=== PATIENT | male | born 1985 | race Caucasian/White ===

== ENCOUNTER 2024-12-07 13:26 | Inpatient (IN) | payer OTHER, SELFPAY ==
[2024-12-07] VITALS (42 sets, daily range): BP systolic 102–147; BP diastolic 65–113
[2024-12-07 12:01] LABS: Glucose - Point of Care 93 mg/dl (70-99)
--- NOTE | 2024-12-07 12:10 | CON.NEURO ---
Neuro Assessment/Plan
Assessment
Head CT imgs rev'd normal
CTA head/neck imgs rev'd no LVO
CTP core 0, penumbra 0
39 year old man initial presentation of L hemispheric TIA fully resolved, then developed left facial symptoms. stroke in the young.
TNK 12:37
multiple territories, suspect embolic etiology unknown source (ESUS)
Admit to MICU for 24 hours of frequent neurochecks.�
neurochecks q1, Frequent vital signs Q15min x 2hrs, then Q30min x 6hrs, then Q1H x 16hrs until stable from the start of TNK.�
�tele, accuchecks/ISS. Repeat Head CT in 24 hours
Blood pressure goals: <180/105 and MAP 80-100� in the acute period.� If BP elevated for 2 readings, preferred agents include IV labetalol or nicardipine.� Vasopressors as necessary to maintain MAP and CPP.�
Glucose goals: Maintain euglycemia using sliding scale insulin. If glucose >180 for two consecutive readings, please use MICU insulin protocol.�
Temperature goals: maintain normothermia�
Diagnostic tests: MRI brain without contrast, ECHO
stroke in the young additional workup check TSH, ESR, CRP, folate, B12, homocysteine,
ANNA, and if neg CTA torso eval for systemic emboli
35' crit discussing history, examining patient multiple times, independent review of imaging, decision making, consenting patient/ re: TNK
Consultation
Order
Date of Consultation: 12/07/24
Requesting Provider: marine
Reason for Consult: stroke alert
Subjective/Objective
Subjective Data
Date of Service: December 07, 2024
from ED notes:
The patient is a 39-year-old male who took [id number]-svyyjen medication, Tylenol PM, last night for muscle soreness from working out. He woke up this morning feeling groggy, which he attributed to Tylenol PM but was otherwise alert and oriented. At
approximately 9:00 AM, he was reportedly fine and conversing normally. Around 10:30 to 11:00 AM, he called from the basement asking for water and reported feeling nauseous. He vomited once and felt slightly better afterward but continued to describe
an unusual sensation, feeling 'out of the body.' He has no prior significant medical conditions but takes Wellbutrin for anxiety.. He denies any headache currently but did have headache earlier or other symptoms currently.
based on findings from Dr Jara and me finding a right facial droop, NIHSS 5 (LOC, month, aphasia, ataxia, facial droop), I decided to treat with TNK in the CT scan. By the time we got back to the room, TNK had arrived, and all deficits had
resolved, however within 2 minutes he developed a LEFT facial droop and left facial numbness (NIHSS 2) so we gave TNK at 12:37
Objective Data
Vital Signs
Pulse Resp BP Pulse Ox
65 18 137/89 100
12/07/24 11:58 12/07/24 11:58 12/07/24 11:58 12/07/24 11:58
Patient Allergies
No Known Allergies Allergy (Unverified 01/08/22 08:37)
CVA Assessment
Onset of Stroke Symptoms
Date of onset of symptoms: 12/07/24
Time of onset of symptoms: 10:30
NIH Stroke Score
Level of Consciousness: 1 - Arousable
LOC Questions: 1-Answers one correctly
LOC Commands: 0-Performs both correctly
Best Horizontal Gaze: 0-Normal
Visual [place]: 0=Normal, no visual loss
Facial Palsy: 1=Minor paralysis
Motor - Right Arm: 0=No drift 10 seconds
Motor - Left Arm: 0=No drift 10 seconds
Motor - Right Le-No drift 5 seconds
Motor - Left Le-No drift 5 seconds
Limb Ataxia: 1-Present in one limb
Sensation: 0-Normal
Best Language: 1-Mild aphasia
Dysarthria: 0-Normal
Extinction and Inattention: 0-No abnormality
NIH Total Score:: 5
Medications
-
Home Medications
�Medication �Instructions �Recorded
cyclobenzaprine 10 mg tablet 10 mg PO TID PRN muscle spasm #10 01/08/22
tabs
hydrocodone 5 mg-acetaminophen 325 1 tab PO Q8H PRN pain #10 tabs 01/08/22
mg tablet
--- NOTE | 2024-12-07 12:28 | ED.CVA ---
History of Present Illness
General
Chief Complaint: CVA/TIA Symptoms
Time Seen by Provider: 12/07/24 11:55
Onset of Stroke Symptoms
Onset of symptoms known: Yes
Date of onset of symptoms: 12/07/24
Time of onset of symptoms: 10:30
History of Present Illness
History of Present Illness:
Note:
CHIEF COMPLAINT(S)
Altered mental status and vomiting.
HISTORY OF PRESENT ILLNESS
The patient is a 39-year-old male who took [id number] medication, Tylenol PM, last night for muscle soreness from working out. He woke up this morning feeling groggy, which he attributed to Tylenol PM but was otherwise alert and oriented. At
approximately 9:00 AM, he was reportedly fine and conversing normally. Around 10:30 to 11:00 AM, he called from the basement asking for water and reported feeling nauseous. He vomited once and felt slightly better afterward but continued to describe
an unusual sensation, feeling 'out of the body.' He has no prior significant medical conditions but takes Wellbutrin for anxiety.. He denies any headache currently but did have headache earlier or other symptoms currently.
PHYSICAL EXAM
General: The patient is generally alert but at times has waxing and waning level of consciousness
Skin: Warm, dry.
Head: Normocephalic, atraumatic.
Neck: Supple, trachea midline.
Eyes, Ears, Nose, Mouth, and Throat: Oral mucosa moist.
Cardiovascular: Normal peripheral perfusion, no edema.
Respiratory: Respirations are non-labored.
Gastrointestinal: Abdomen nondistended.
Back: Normal range of motion, normal alignment.
Musculoskeletal: Normal range of motion, normal strength.
Neurological: Question subtle facial asymmetry, there seem to be some ataxia with finger-nose testing, the patient has waxing and waning level of consciousness, he took nearly 30 seconds to the month accurately, he appears somewhat confused, 5 out
of 5 strength in all extremities
Psychiatric: Cooperative, appropriate mood and affect.
PROBLEM LIST
Acute:
- Altered mental status
- Vomiting
Chronic:
- Anxiety
PLAN
Evaluation to include a computed tomography (CT) scan of the head. Consider possibility of dehydration due to vomiting.
DIFFERENTIAL DIAGNOSIS
The Differential Diagnosis includes, in no particular order and is not limited to:
- Medication side effect
- Anxiety reaction
- Dehydration
- Stroke
- Electrolyte imbalance
- Vestibular disorder
- Migraine
- Acute confusional state
- Substance use or withdrawal
- Neurological event (e.g., transient ischemic attack)
CT head shows no acute abnormality
SUMMARY OF ENCOUNTER
The patient was seen in the emergency department as a stroke alert due to altered mental status and vomiting. The patient initially exhibited waxing and waning symptoms, with a sudden worsening while in the emergency department. Neurology was
consulted, and it was recommended to administer tenecteplase (TNK), which was ordered by Dr. Cooper. Basic blood work was performed and was relatively unremarkable. Urine drug screen was positive for marijuana with no alcohol detected. A computed
tomography angiography (CTA) showed no large vessel occlusion, and a non-contrast CT scan of the head was negative.
ASSESSMENT
The patient presented with altered mental status and vomiting, potential causes include medication side effects, dehydration, electrolyte imbalance, or acute neurological event. The positive marijuana screen and negative imaging for large vessel
occlusion or other acute intracranial findings guide the differential diagnosis away from an acute ischemic stroke.
PLAN
Monitor patients neurological status. Continue to assess for potential side effects of medications. Address hydration and electrolyte balance as needed. Follow protocols for patients with positive drug screens, ensuring patient support and
counseling about substance use.
INDEPENDENT REVIEW OF LABS AND INTERPRETATION OF TESTS
My independent review of the urine drug screen indicates a positive result for marijuana, with no alcohol detected. My independent interpretation of the computed tomography angiography (CTA) is that there is no large vessel occlusion. The
non-contrast CT scan of the head is negative for acute findings.
PATIENT EDUCATION AND COUNSELING
The patient was educated on the implications of a positive drug screen for marijuana, and the importance of monitoring and possibly modifying any medication that might contribute to altered mental status. Counseling regarding substance use and its
potential effects on health was also provided.
MEDICATION RECONCILIATION
Tenecteplase (TNK) was administered as per neurology recommendations for the acute management of symptoms concerning for stroke.
MEDICAL DECISION MAKING
-Complexity of Data Reviewed: Chronic conditions affecting care include anxiety. Differential diagnosis includes potential medication side effects, anxiety reactions, dehydration, stroke, electrolyte imbalance, vestibular disorder, migraine, acute
confusional state, substance use or withdrawal, and transient ischemic attack.
-Data:
Category 1
My independent interpretation of the CTA reveals no large vessel occlusion. The non-contrast CT scan of the head was interpreted as negative for acute intracranial findings. Urine drug screen was positive for marijuana.
Category 3
Neurology was consulted for management recommendations. Tenecteplase was recommended by neurology and administered under Dr. Fontanez orders.
-Risk:
Consideration of Admission/Observation: Escalation of care including admission/observation was considered given the complexity and risk of the patients presenting complaint and exam findings. However, ultimately I feel the patient is safe for
outpatient management with close follow-up. Reasoning: Work-up reassuring, does not reveal any acute life/organ threatening processes, patients symptoms well controlled upon reevaluation, reexamination is reassuring, vitals are stable, patient
agreeable with discharge, reliable for follow-up.
DIAGNOSIS
- Altered mental status, unspecified (R41.82)
- Vomiting, unspecified (R11.10)
- Positive urine drug screen for cannabinoids (R78.6)
Phy Exam
Physical Exam
Physical Exam:
See HPI
Course
Orders/Labs/Results
Orders:
Orders
12/07/24 12:01
CT BRAIN PERF STROKE ALERT Urgent
Comment:
Reason For Exam: alt ms
CT HEAD STROKE ALERT W/o Cont Urgent
Comment:
Reason For Exam: alt ms ataxia acute confusion
CT HEAD/NECK ANG STROKE ALERT Urgent
Comment:
Reason For Exam: alt ms ataxia
12/07/24 12:23
Tenecteplase [Tnkase] 21 mg Syringe [Syringe Non-Pump] 0 ml IV NOW
Provider explained risk/benefits to patient &/or caregiver?: Yes
Blood pressure: 137/89
12/07/24 12:29
Alcohol Urgent
Complete Blood Count/With Diff Urgent
Comprehensive Metabolic Panel Urgent
Glycohemoglobin (HgbA1c) Urgent
12/07/24 12:31
PTT Urgent
Prothrombin Time Urgent
Troponin I Urgent
12/07/24 12:58
Admit/Transfer Patient As Directed
Co-Sign Provider:
Level of Care: Inpatient admission
Assign to:: ICU
Physician / Group: phoebe
Diagnosis: cva
Reason for Hospitalization: cva
Expected length of stay greater than two midnights?: Yes
ELOS- Estimated Length of Stay in days: 2
I certify the patient meets the requirements for IP care: Yes
Code Status As Directed
Resuscitation Status: Full Code
PRN Pain Medication Management As Directed
May give lesser potent ordered pain med per pt: Yes
preference::
Protocol:: Medication orders for pain may be administered in a
manner that supports deferring to patient preference
when the pt is:
- Requesting an ordered lesser potent pain medication.
Least to most potent pain medications are defined
as: acetaminophen < NSAID < tramadol < opioids
(morphine, oxycodone, hydromorphone).
- Requesting a lesser dose of the same medication IF
ORDERED.
- Requesting a less intrusive route of administration
if both routes are prescribed by the provider (PO <
IV).
12/07/24 13:05
Urine Drug Abuse Screen Urgent
Date Specimen was Collected: 12/07/24
Time Specimen was Collected: 12:39
12/07/24 13:12
Add On- LAB Routine
Comments:: Please add to today's labs or draw as routine
Tests Added?: TSH reflex, Ferritin, Folate, Vit. B12, homocysteine, ESR, CRP,
12/07/24 13:29
Acetaminophen [Tylenol] 650 mg PO Q4HPRN PRN
12/07/24 13:29
Echo W Saline (bubble) Routine
Reason for Study: cva
Case Management Consult Once
Case Management Consult: Discharge Planning
DIETARY IP CONSULT Routine
Reason for Consult: stroke/TIA
NEUROLOGY CONSULT Routine
Consulting Provider: Oz Foreman
Was physician already notified: Yes
[employer] Urgent
MR Brain Without Contrast Routine
Comment: complete 24 hrs post tenecteplase administration
Reason For Exam: possible stroke, status post tenecteplase
Recent pill cam endoscopy?: No
Hemetest Stools As Directed
Comment: hemoccult all stools if patient received tenecteplase
NIH Stroke Scale As Directed
Directions: Other
Comment: NIH stroke Scale to be completed prior to thrombolytic administration, then every 1 hour for 2
hours, then every shift and with change in condition and/or mental status.
Neurological Checks As Directed
Frequency: Per unit guidelines
Additional Instructions:: after start of thrombolytic therapy:
q15min x 2 hrs, q30min x 6 hrs, q1h x 16 hrs, q4h x 24 hrs, then every shift and
with any changes.
Notify MD As Directed
Notify physician if: - Any deterioration, change in neurological status, development of severe headache,
nausea and vomiting, or with any signs of bleeding. (see guidelines for suspected
intracerebral hemorrhage).
- If intracranial hemorrhage is suspected or confirmed by imaging, anticipate need for
osmotic diuretic to maintain euvolemia.
Notify MD As Directed
Notify physician if: Glucose less than 70 or greater than 180.
Anticipate corrective insulin orders.
Notify MD As Directed
Notify physician if: unable to obtain MRI of head within 22-32 hours of tenecteplase administration
- contact Neurology for order for CT of head without contrast
Patient Education As Directed
Type: Stroke education packet
Comment: provide to patient and family
Pneumatic Compression Sleeves As Directed
Type: Knee high
Precautions As Directed
Type of Precautions: Bleeding
Comment: post Bleeding Precaution sign at bedside (if patient received tenecteplase)
Swallow Screening CVA/TIA ONLY As Directed
Comment: NPO until swallow screening completed
If patient FAILS swallow screening:: NPO and Speech consult and aspiration precautions
If patient PASSES swallow screening, diet:: 1999/ 17 CHO Diabetic
Thrombolytic Precautions As Directed
Thrombolytic Precautions:: [place] bleeding precautions. Minimize invasive procedures and venipunctures,
avoid IM injections and over-handling patient, and check all puncture sites for
bleeding. Assess the patient and notify provider for signs and symptoms of
internal or serious bleeding, such as changes in vital signs or evidence of blood
in the urine or stool.
Additional instructions: Hemocult all stools.
Apply direct pressure or pressure dressing to any compressible puncture sites.
No ABG sampling or Brand insertion after Tenecteplase administration for 24 hours,
unless directed by the Neurologist/Attending.
Vital Signs As Directed
Frequency: q15m
Call for:: BP greater than 180/105 mmHg or less than 100/60 mmHg
Additional Instructions:: after start of thrombolytic therapy:
q15min x 2 hrs, q30min x 6 hrs, q1h x 16 hrs, q4h x 24 hrs, then every shift and
with any changes.
Ot Eval And Treat Routine
Physiatry Consult Routine
Consulting Provider: Oren Amador
Was physician already notified: Yes
Reason for consult: stroke/TIA
Pt Eval And Treat Routine
Activity Level: As Tolerated
Speech Therapy Eval & Treat Routine
DX Deep Vein Thrombosis Video Routine
12/08/24 06:00
Basic Metabolic Panel IN AM
Cardiovascular Evaluation IN AM
Complete Blood Count/No Diff IN AM
PTT IN AM
Prothrombin Time IN AM
Abnormal Lab Results
12/07/24 12/07/24
12:29 13:05
WBC 17.1 H 10^3/uL
(4.8-10.8)
RDW 11.4 L %
(11.5-14.5)
MPV 10.5 H fL
(7.4-10.4)
Abs Immat Gran (auto) 0.1 H 10^3/uL
(0-0.05)
Absolute Neuts (auto) 13.7 H 10^3/uL
(1.4-6.5)
Absolute Monos (auto) 1.0 H 10^3/uL
(0.1-0.6)
Neutrophils % 79.8 H %
(42.2-75.2)
Lymphocytes % 13.4 L %
(20.5-51.1)
BUN 22 H mg/dl
(9-20)
Albumin 5.1 H g/dl
(3.5-5.0)
U Marijuana (THC) Screen Positive H
(Negative)
12/07/24 12:29
12/07/24 12:29
Vital Signs
Initial and Last Documented VS:
Initial Vital Signs
Pulse Resp BP Pulse Ox
65 18 137/89 100
12/07/24 11:58 12/07/24 11:58 12/07/24 11:58 12/07/24 11:58
Last Documented Vital Signs
Temp Pulse Resp BP Pulse Ox
36.6 C 67 21 117/71 98
12/07/24 13:56 12/07/24 14:15 12/07/24 14:15 12/07/24 14:15 12/07/24 14:07
*Pulse Oximetry
SaO2: 100
Oxygen Mode of Delivery: Room air
Patient hypoxic: no
*Critical Care Note
Total Time (30-74mins, 75-104mins- exclusive of procedures): 40min
comment:
The patient was seen emergently upon arrival immediately and care coordinated with neurology. He was given TNK while in the Emergency Department.
ED Attending Note
-
Portions of this chart may have been created with voice recognition software.� Occasional wrong word or��sound alike� substitutions may have occurred due to the inherent limitations of voice recognition software.
Discharge Plan
Departure
Patient Disposition: Admit
Date of Disposition: 12/07/24
Time of Disposition: 12:27
Presentation/result/management discussed w/ accepting MD/DO: Hospitalist
Discharge Problem:
Acute cerebrovascular accident (CVA)
Interventions
Interventions:
*Risk Screen - Suicide Last Done: 12/07/24 13:11
*General Assessment Last Done: 12/07/24 13:11
*Neglect/Abuse Screening Last Done: 12/07/24 13:11
*ED COVID-19 Vaccine History Last Done: 12/07/24 13:11
*Nursing Disposition Last Done: 12/07/24 13:52
ED- Pulmonary Assessment Last Done: 12/07/24 12:00
ED- Neurological Assessment Last Done: 12/07/24 12:33
ED- Cardiac Assessment Last Done: 12/07/24 12:00
Discharge Date and Time
Discharge Date/Time: 12/07/24 13:53
[2024-12-07] MEDS: TNKASE 4.2 MG IV (12:34)
[2024-12-07 12:59] LABS: Hematocrit 44.2 % (39.0-52.0); Hemoglobin 15.9 g/dL (13.0-18.0); Mean Corp Hgb Conc. 36.0 g/dL (33.0-37.0); Mean Corpuscular Volume 85.8 fL (80.0-94.0); Nucleated Red Blood Cells % 0 % (-); Platelet Count 253 10^3/uL (130-400); Red Cell Dist. Width 11.4 % (11.5-14.5)
--- NOTE | 2024-12-07 13:08 | HPS.HSE ---
Family Physician
-
Family Physician:
Chief Complaint
-
headache
History of Present Illness
39-year-old male history of anxiety/depression, presenting with concern for CVA. He woke up this morning feeling foggy with some memory dysfunction. This occurred while he was at work this morning. While he was at work he developed bilateral
headache at around 10:30 AM. He felt pain across his entire body bilaterally with tingling in his hands bilaterally and some numbness of the left face. He had dizziness without vertigo. He had nausea and sweating. No vomiting. No visual
symptoms or vision loss. He felt weak in his legs bilaterally. His noticed that he had some slurred speech. Patient had some tingling in his left leg earlier.
No family history of strokes. His father had heart disease.
He drinks alcohol occasionally. He smokes marijuana occasionally. Does not use nicotine.
Medical History
Past Medical History
Past Medical History: Reports Other (anxiety/depression,)
Past Surgical History: Reports None
Social History
Tobacco: Non-smoker
Alcohol: Occasional
Drug: None and Marijuana
Family History
Family History: Not pertinent
Allergies / Home Medications
Allergies reflects when Allergies were last updated in [employer].
Home Medications with original date entered in [employer]
Allergy/Medication List:
Allergies
Allergy/AdvReac Type Severity Reaction Status Date / Time
No Known Allergies Allergy Unverified 01/08/22 08:37
Home Medications
cyclobenzaprine 10 mg tablet 10 mg PO TID PRN muscle spasm #10 tabs 01/08/22
hydrocodone 5 mg-acetaminophen 325 mg tablet 1 tab PO Q8H PRN pain #10 tabs 01/08/22
Review of Systems
-
History Source: Patient
A 12 point ROS was completed and negative except as noted: Yes
Constitutional: Reports No Symptoms
EENT: Reports No Symptoms
Respiratory: Reports No Symptoms
Cardiac: Reports No Symptoms
Abdomen/GI: Reports No Symptoms
: Reports No Symptoms
Musculoskeletal: Reports No Symptoms
Skin: Reports No Symptoms
Neurological: Reports No Symptoms
Endocrine: Reports No Symptoms
Hematologic/Lymphatic: Reports No Symptoms
Psych: Reports No Symptoms
Physical Exam
Vital Signs
Vital Signs
Pulse Resp BP Pulse Ox
67 12 135/92 100
12/07/24 13:00 12/07/24 13:00 12/07/24 13:00 12/07/24 12:30
Physical Exam
General: Well Developed, Well Nourished and No Apparent Distress
HEENT: NormoCephalic, Moist mucous membranes and Atraumatic
Respiratory: Clear
Cardiac: S1/S2 and Regular Rhythm; No Murmur or Rub
GI: Soft, Non Tender, Non Distended and Normal Bowel Sounds; No Organomegaly
Rectal: Deferred by Provider
Musculoskeletal: No Clubbing, No Cyanosis and No Edema
Skin: No Rash
Neuro: Nonfocal/grossly intact
Laboratory Results
-
12/07/24 12:29
Data Reviewed
-
Lab Data: Labs Reviewed by me
Old Records: Reviewed
Impression/Plan
-
IMPRESSION:
PLAN:
# Left-sided weakness/numbness and tingling and headache concerning for acute CVA
- NIH of 5 initially, currently no symptoms
- CT head shows no acute abnormality
- Concern for acute CVA
- Symptoms initially resolved and TNK was going to be held but then had symptoms again and TNK being given
- Neurochecks per protocol
- Speech evaluate
- PT/OT
- Check A1c and lipid panel
- Maintain blood pressure under 180/105
-CTA head and neck shows no large vessel occlusion, dissection or aneurysm.
-Check CT head after 24-hour
- Check MRI brain
-Check echo with bubble
-Alcohol level, UDS pending
-PT OT, speech eval
- Neurology consulted
Full code
DVT prophylaxis�SCDs
Regular diet
[2024-12-07 13:11] LABS: APTT 25.7 Sec (23.4-35.0); INR 1.00; PT 13.5 Sec (11.4-14.6)
[2024-12-07 13:13] LABS: ALT (SGPT) 34 U/L (0-50); AST (SGOT) 35 U/L (17-59); Albumin 5.1 g/dl (3.5-5.0); Alkaline Phosphatase 48 U/L (38-126); Blood Urea Nitrogen 22 mg/dl (9-20); Calcium 9.8 mg/dl (8.4-10.2); Carbon Dioxide 26 mmol/L (22-30); Chloride 105 mmol/L (98-107); Estimated Creatinine Clearance 110 ml/min; Glucose 99 mg/dl (70-99); Potassium 4.4 mmol/L (3.5-5.1); Sodium 139 mmol/L (135-145); Total Protein 7.6 g/dl (6.3-8.2); eGFR > 60.00
[2024-12-07 13:21] LABS: Troponin I < 0.012 ng/ml
--- NOTE | 2024-12-07 14:13 | CON.INTV ---
Consultation
Consultation Request
Date/Time Consultation Requested: 14:30 12/07/24
Date/Time Consultation Performed: 14:30 12/07/24
Medical History
-
History of Present Illness:
39yoM PMH anxiety/depression on Wellbutrin presenting from stroke alert s/p TNK.
Pt reports waking up feeling foggy and slightly off. He took his morning medications of fish oil, multivitamin and wellbutrin and then began having a low grade headache. He then described an episode of vertigo, photophobia, whole body pain with
paresthesias, diaphoresis and nausea. His reports noting his face was asymmetric with the L seeming weak as he was communicating with appropriate words but no full sentences. He then vomited with cessation of the episode. He reports continuing
to feel weak with L sided numbness as his and son helped him upstairs to the car. Once he presented to the ED he had continued L sided paresthesias and weakness with an episode of aphasia unable to say the month and waxing/waning AMS. Pt
recollects the events and describes the ability to understand the question but inability to formulate a response.
Denies viral prodrome. Started Wellbutrin 1 month ago with no known side effects. Son has had cough for 2 weeks. No other sick contacts. Denies rashes, bug bites, ticks but was [place] a [place] and [place] 2 weeks ago. No hx migraines, headaches,
seizures, cardiac dx.
Past Medical History
Past Medical History: Psychiatric (depression/anxiety)
Past Surgical History: None
Social History
Tobacco: Non-smoker
Alcohol: Occasional
Drug: Marijuana
Personal:
Living: With Family
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
Family History
Family History: Reviewed & Not Pertinent (Father has cardiovascular disease and elevated PSA, Mother hx thyroid cancer)
Allergies / Home Medications
Allergies
Allergy/AdvReac Type Severity Reaction Status Date / Time
No Known Allergies Allergy Unverified 01/08/22 08:37
Home Medications
�Medication �Instructions �Recorded �Confirmed �Last Taken �Type
bupropion HCl 150 mg 24 hr tablet, 150 mg PO DAILY Mental Health 12/07/24 12/07/24 Unknown History
extended release (Wellbutrin XL)
omega 5-din-gan-fish oil 60 mg-90 1 cap PO DAILY Supplement 12/07/24 12/07/24 Unknown History
mg-500 mg capsule (Fish Oil)
therapeutic multivitamin 1 tab PO DAILY Supplement 12/07/24 12/07/24 Unknown History
Review of Systems
-
History Source: Patient and Family
Constitutional: No Symptoms
EENT: No Symptoms
Respiratory: No Symptoms
Cardiac: No Symptoms
Abdomen/GI: No Symptoms
: No Symptoms
Musculoskeletal: No Symptoms
Skin: No Symptoms
Endocrine: No Symptoms
Hematologic/Lymphatic: No Symptoms
Vitals / Labs / Diagnostic Testing
Vital Signs
Temp Pulse Resp BP Pulse Ox
98 F 60 9 130/69 98
12/07/24 13:56 12/07/24 13:52 12/07/24 13:52 12/07/24 13:52 12/07/24 13:59
Lab Data
12/07/24 12:29
12/07/24 12:29
Laboratory Results
12/07/24
12:31
PT 13.5
INR 1.00
APTT 25.7
Diagnostic Testing:
Physical Exam
-
HEENT: Normocephalic, Anicteric and Moist Mucous Membranes
Cardiovascular: S1/S2 and Regular Rhythm
Respiratory: Clear and Non-Labored Respirations
GI: Soft
Neurology: Awake, Alert, Oriented and Other (L side alteration in sensation, equal strength bilaterally, dysmetric eye movements with fast tracking, )
Skin: Warm and Dry
General: Comfortable
Assessment
-
39yoM presenting from stroke alert s/p TNK with gradually improving L sided paresthesias and dysmetria.
Neuro: Neurochecks following TNK. MRI brain. Hold Wellbutrin. Differential still includes seizure in setting of bupropion although no hx seizures or aggravating causes.
Cardiovascular: Echo with bubble study. Hold DVT prophylaxis with TNK. Troponin<0.012. ECG normal.
Pulmonary: CXR unremarkable.
GI: NPO
:
Endocrine: TSH pending. Thyroid nodule noted on CT. Plan for outpt follow up.
Skin: no rashes.
Data Reviewed
-
EKG: Tracing personally visualized and interpreted
Radiology: Image personally visualized and interpreted
CT Scan: Image personally visualized and interpreted
Labs: Labs reviewed by me
--- NOTE | 2024-12-07 14:58 | PTCARENOTE ---
pt arrived to the ICU @ 1332. Handoff NIH as documented. She is awake and alert, euphoric and very pleasant. Naa Ge is present and providing some health history. Stroke booklet given to her. Knee-hi scd's placed. Left [id number] protective catheter
flushed and patent. +BSX4. Right pupil larger than the left. He also report problem with focusing if objects are placed close in front of him too quickly. Still with minor tingling of his left face, & left upper and lower extremities. He was
informed of the plan of care regarding frequent neurological assessments and that he is to report headache that is worse than a typical headache for him or any symptoms that brought him to the ED. He and his verbalized their understanding.
Bleeding precautions maintained.
--- NOTE | 2024-12-07 15:03 | PTOTSP ---
Speech Therapy Evaluation:
Pt with no predisposing risk factors of dysphagia. Precipitating risk factor includes concern for acute CVA. Despite this, oropharyngeal swallow appeared functional at bedside. No overt s/sx of aspiration across trials. WBC elevated at 17.1, however
pt afebrile, on room air, and without dysphagia hx. Chest imaging pending. MRI planned for tomorrow 12/08.
Recommend:
1. Regular solids and thin liquids
2. Medications as tolerated
3. General aspiration precautions
4. OIL REFINERY PROCESS TECHNICIAN to follow pending results of MRI given functional oropharyngeal swallow at bedside and no clinical observation of language deficits or cognitive dysfunction at time of evaluation
--- NOTE | 2024-12-07 15:15 | PTCARENOTE ---
Assumed care of patient. Pt rec'd A&Ox3. Pleasant. Scant left facial tingling noted as only deficit. Symmetrical smile..pupils 3-4/brisk. Equal strength. NIHSS of 0 noted. S1 S2 reg w/ SB/NSR on monitor. +PP. No edema. On R/A...lungs
clear...sats 96%. Abdomen round...+BS. Voids yellow in urinal. Skin WNL. 18P LAC. VS documented. Call lraa within reach. Reg diet. Will continue to monitor closely.
--- NOTE | 2024-12-07 16:00 | CON.CAR ---
Addendum entered and electronically signed by Oren Maya MD 12/07/24 20:00:
39-year-old man with little past medical history who presented with expressive aphasia and was treated with tenecteplase following witnessed left facial droop with left-sided paresthesias, currently asymptomatic.
PMH: Anxiety/depression on Wellbutrin, well-controlled
PSH: None
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
FH: Noncontributory
Remainder of history: As below per Vlad Yu. Reviewed in detail and agree, unless otherwise specified
117/77, pulse 63, respiratory 24, head neck exam unremarkable lungs clear normal cardiac exam normal abdomen, neuro nonfocal extremities without clubbing cyanosis or edema distal pulses intact
ECG sinus rhythm, bradycardia, normal ECG
Neck CTA no significant vascular abnormalities,, thyroid nodules
Hemoglobin 15.9 white count 17.1, CMP normal, troponin negative, lipids pending
Impression:
Stroke symptoms status post tenecteplase
Plan:
Await echocardiography
Initiation of antiplatelet therapy per neurology
Await lipids
Determination of outpatient monitoring, transesophageal echo, etc. per neurology and hospitalist.
Original Note:
Consultation
Consultation Request
Date/Time Consultation Requested: 12/07/24
Date/Time Consultation Performed: 12/07/24
Requesting Provider: Dr. Casey
Performing Provider: Dr. PAULINE Myaa
Reason for Consultation: CVA, s/p TNK
Medical History
-
History of Present Illness:
Patient came to the ER today with stroke symptoms and was admitted with stroke and received TNK in the ER, cardiology is now consulted for suspected embolic stroke of unknown source. Patient says he awoke in his usual state of health this morning,
but later in the morning started with upset stomach and headache which he thought was due to taking a dose of Tylenol PM last night for musculoskeletal soreness after workout. He tried eating, but symptoms persisted. He says it is unusual for him
to get a headache, but when he does it is usually in the scenario where he takes medication on an empty stomach. He says that despite eating his symptoms worsened with increasing headache to the point where he had to lay down and assume the
position in bed. Patient also had an unusual symptom earlier in the day today where he had trouble with word finding when someone asked him the [place] [address] from [place] he lives to get him home. He then started with vomiting and left-sided
paresthesias and so he came to the ER. Patient had CT scan of the head that was unremarkable and briefly his symptoms seem to improve, but then he had a witnessed left-sided facial droop with recurrent left-sided paresthesias and so he received
TNK. His symptoms have now completely resolved. Neurology saw the patient and suspects embolic stroke unknown source.
PMH:
None
Past Medical History
Past Medical History: Other (in HPI)
Past Surgical History: None
Social History
Tobacco: Non-Smoker
Alcohol: Occasional (monthly or less)
Drug: Marijuana (rarely uses marijuana gummies)
Personal:
Living: With Family
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
Family History
Family History: Reviewed & Not Pertinent (no FH premature CAD or CVA)
Allergies / Home Medications
Allergy/AdvReac Type Severity Reaction Status Date / Time
No Known Allergies Allergy Unverified 01/08/22 08:37
�Medication �Instructions �Recorded �Confirmed �Type
bupropion HCl 150 mg 24 hr tablet, 150 mg PO DAILY Mental Health 12/07/24 12/07/24 History
extended release (Wellbutrin XL)
omega 6-flk-axp-fish oil 60 mg-90 1 cap PO DAILY Supplement 12/07/24 12/07/24 History
mg-500 mg capsule (Fish Oil)
therapeutic multivitamin 1 tab PO DAILY Supplement 12/07/24 12/07/24 History
Review of Systems
-
History Source: Patient and Family ()
All other systems: Negative unless noted
Physical Exam
Vital Signs
Temp Pulse Resp BP Pulse Ox
98 F 65 22 125/81 98
12/07/24 13:56 12/07/24 15:30 12/07/24 15:30 12/07/24 15:30 12/07/24 14:07
GEN: NAD. AAOx3
HEENT: EOMI, MMM
LUNGS: RA. CTA B/L, no wheeze
CV: SR on tele. Reg, S1/S2, no murmur
ABD: soft, BS+, NT, ND
EXT: No clubbing, cyanosis, lesions or edema B/L
NEURO: Gross non-focal
SKIN: Warm, dry and pink. No rash
Lab Results
12/07/24 12:29
12/07/24 12:29
Troponin I < 0.012 ng/ml 12/07/24 12:31
Impression / Plan
-
PCP: Unknown
Card: None
Impression:
Admitted with stroke symptoms 12/07/24
Left sided facial droop, s/p TNK in the ER 12/07/24
Embolic stroke unknown source
Echo 12/07/24: Bubble study, pending
Plan:
-Patient came to the ER today with stroke symptoms and was admitted with stroke and received TNK in the ER, cardiology is now consulted for suspected embolic stroke of unknown source. Patient says he awoke in his usual state of health this morning,
but later in the morning started with upset stomach and headache which he thought was due to taking a dose of Tylenol PM last night for musculoskeletal soreness after workout. He tried eating, but symptoms persisted. He says it is unusual for him
to get a headache, but when he does it is usually in the scenario where he takes medication on an empty stomach. He says that despite eating his symptoms worsened with increasing headache to the point where he had to lay down and assume the
position in bed. Patient also had an unusual symptom earlier in the day today where he had trouble with word finding when someone asked him the [place] [address] from where he lives to get him home. He then started with vomiting and left-sided
paresthesias and so he came to the ER. Patient had CT scan of the head that was unremarkable and briefly his symptoms seem to improve, but then he had a witnessed left-sided facial droop with recurrent left-sided paresthesias and so he received
TNK. His symptoms have now completely resolved. Neurology saw the patient and suspects embolic stroke unknown source. Patient denies any illicit drug use aside from occasional marijuana Gummies and denies alcohol use disorder.
-ECG reviewed by me is sinus bradycardia without acute ST or T wave changes
-Telemetry reviewed by me and no evidence of atrial rhythm
-Patient seen and examined, no evidence of facial droop, expressive aphasia or dysarthria. Patient reports complete resolution of all symptoms. MRI of the brain is pending.
-Recommend echo bubble study and patient is agreeable
-We discussed that pending results of the MRI and the echo bubble study patient may be a candidate for implantation of a Linq monitor to look for atrial arrhythmia. Also pending results could consider ANNA.
-Check CVE in AM. Patient was not taking his statin prior to admission
-Follow BP, patient denies any history of HTN and is not taking any BP meds prior to admission
--- NOTE | 2024-12-07 19:30 | PTCARENOTE ---
handoff NIH 0, pt denies MODI. oriented x3. at bedside. updated on plan of care overnight. cont /w neuro checks per protocol. remains SR on monitor, on RA, voiding in urinal. call lara in reach.
[2024-12-07 20:37] LABS: Magnesium 2.2 mg/dl (1.6-2.3)
[2024-12-07 20:41] LABS: C-Reactive Protein < 5.00 mg/L (0.0-10.00)
[2024-12-07 21:16] LABS: Ferritin 117.0 ng/ml (17.9-464.0)
[2024-12-07 21:47] LABS: Folate 14.1 ng/ml (2.76-20); Vitamin B12 733 pg/ml (239-931)
[2024-12-08] VITALS (19 sets, daily range): BP systolic 101–130; BP diastolic 65–87; PULSE 72–75; O2SAT 97; BMI 24.4
--- NOTE | 2024-12-08 | PTCARENOTE ---
assessment unchanged, neuro checks continue. pt denies MODI, offers no other complaints. call lara in reach.
--- NOTE | 2024-12-08 03:25 | PTCARENOTE ---
AM labs sent. neuro checks ongoing, no changes noted. pt refusing hygiene overnight, states he would rather get cleaned up in AM when he is allowed OOB. call lara in reach.
[2024-12-08 03:29] LABS: Hematocrit 43.5 % (39.0-52.0); Hemoglobin 15.7 g/dL (13.0-18.0); Mean Corp Hgb Conc. 36.1 g/dL (33.0-37.0); Mean Corpuscular Volume 85.1 fL (80.0-94.0); Platelet Count 243 10^3/uL (130-400); Red Cell Dist. Width 11.8 % (11.5-14.5)
[2024-12-08 03:41] LABS: APTT 25.7 Sec (23.4-35.0)
[2024-12-08 03:50] LABS: INR 1.09; PT 14.4 Sec (11.4-14.6)
[2024-12-08 04:00] LABS: Blood Urea Nitrogen 19 mg/dl (9-20); Calcium 9.3 mg/dl (8.4-10.2); Carbon Dioxide 27 mmol/L (22-30); Chloride 106 mmol/L (98-107); Estimated Creatinine Clearance 110 ml/min; Glucose 105 mg/dl (70-99); HDL Cholesterol 37 mg/dl; LDL Cholesterol, Calculated 166 mg/dl; Potassium 4.4 mmol/L (3.5-5.1); Sodium 140 mmol/L (135-145); Very Low Density Lipoprotein 24 mg/dl (0-30); eGFR > 60.00
--- NOTE | 2024-12-08 07:34 | PTCARENOTE ---
received patient from design specialist RN. patient is AAOx4, assessment benign, on room air lungs clear, sinus freida on monitor. Patient ordered to have ECHO and MRI today. will review orders, call lara within reach.
--- NOTE | 2024-12-08 08:11 | W.PN.INTV ---
Today's Communication / Plan
Recommendations
Plan reviewed with attending.
Assessment
-
39yoM presenting from stroke alert s/p TNK with resolved symptoms and no neurologic sequelae.
Afebrile vitals stable. TSH, folate, B12 WNL.
#Acute neuro deficit, concerning for CVA
- Neurochecks following TNK for 24hrs and f/u CT complete at 12:34 today.
- MRI brain planned for today.
- Echo with bubble study evaluating for PFO today.
- Neurology following. Recommending antiplatelet therapy after 24hr TNK window. ASA, plavix, statin.
#Anxiety/depression
- Restart home Wellbutrin
#Thyroid nodule on CT
- Thyroid US. Can be followed outpt.
DVT prophylaxis: SCDs
Diet: normal
Disposition: plan to downgrade pending f/u CT and MRI
Subjective Dataa
Subjective Data
Date of Service:
Date of Service: December 08, 2024
Subjective:
No acute overnight events. Pt is feeling well today with completely resolved symptoms from yesterday. Denies numbness, tingling weakness, headache, nausea or vomiting.
Objective Data
Data Reviewed
Vital Signs / I&O / Oxygen:
Vital Signs
Temp Pulse Resp BP Pulse Ox
97.9 F 75 19 129/86 99
12/08/24 03:11 12/08/24 07:06 12/08/24 07:06 12/08/24 07:06 12/08/24 03:19
Intake and Output
12/07/24 12/08/24 12/09/24
06:59 06:59 06:59
Intake Total 1440 / 1440
Output Total 1900 / 1900
Balance -460 / -460
SaO2 99
Physical Exam
General: Comfortable
HEENT: Normocephalic, Anicteric and Moist Mucous Membranes
Cardiovascular: S1-S2 and Regular Rhythm
Respiratory: Clear and Non-Labored Respirations
GI: Soft
Neurology: Awake, Alert, Oriented and No Motor Deficits (or sensation deficits, CN2-12 intact)
Skin: Warm and Dry
Labs/Micro/Reports
Lab Data
12/08/24 03:14
12/08/24 03:14
Laboratory Results
12/07/24 12/08/24
12:31 03:14
PT 13.5 14.4
INR 1.00 1.09
APTT 25.7 25.7
--- NOTE | 2024-12-08 08:13 | W.PN.CARDCBS ---
Addendum entered and electronically signed by Sole Yu PA-C 12/08/24 16:13:
Patient asked to delay placement of his monitor to accommodate his planned vacation. We talked about the risks versus benefits of delaying his monitoring. With his present in the room. Patient will apply the monitor on his own in about 5
days. We reviewed how to apply the monitor including skin preparation and that when monitoring period is done he can place a monitor in the postage paid box and mail back to our office. Will arrange follow-up.
Original Note:
Today's Communication / Plan
-
Outpatient ANNA/monitor
Rosuvastatin 20 mg a day
Antiplatelet regimen per neurology/hospitalist
We will arrange for outpatient cardiac follow-up
No objections to discharge today if echocardiogram markable
Impression / Plan
-
PCP: Unknown
Card: None
Impression:
Admitted with stroke symptoms 12/07/24
Left sided facial droop, s/p TNK in the ER 12/07/24
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
Hypercholesterolemia, LDL 166
Echo 12/07/24: Bubble study, pending
Plan:
Despite his stroke symptoms which resolved with tenecteplase, he looks well at the present time and has no focal neurologic deficits.
No ectopy/atrial fibrillation, etc.
His exam is unremarkable.
Echocardiogram is pending.
Rosuvastatin 20 mg has been added to his regimen. Antiplatelet regimen per neurology, presumably DAPT followed by single agent.
We will arrange for a transesophageal echo to be performed as an outpatient. We will apply a 2-week monitor at discharge and arrange for outpatient cardiology follow-up follow-up.
Currently normotensive, I am comfortable without adding SHELTON/ARB defer to hospitalist and neurology.
Would not object to discharge today from cardiac standpoint.
Progress Note - Mri Tech
Subjective
Date of Service: December 08, 2024:
39-year-old man with little past medical history who presented with expressive aphasia and was treated with tenecteplase following witnessed left facial droop with left-sided paresthesias, currently asymptomatic.
PMH: Anxiety/depression on Wellbutrin, well-controlled
Current meds: Acetaminophen
129/86, pulse 75, respiratory rate 19, head neck exam unremarkable, lungs are clear, regular rate and rhythm without murmurs or gallops, abdomen benign extremities without clubbing cyanosis or edema
Hemoglobin 15.7 white count 9.8 sed rate is 1, glucose 105, hemoglobin A1c is pending, total cholesterol is 227, LDL is 166, HDL is 37, TSH is normal, homocystine pending
Objective
Labs:
12/08/24 03:14
12/08/24 03:14
Labs
Hgb 15.7 g/dL (13.0-18.0) 12/08/24 03:14
Hct 43.5 % (39.0-52.0) 12/08/24 03:14
Plt Count 243 10^3/uL (130-400) 12/08/24 03:14
PT 14.4 Sec (11.4-14.6) 12/08/24 03:14
INR 1.09 12/08/24 03:14
APTT 25.7 Sec (23.4-35.0) 12/08/24 03:14
Sodium 140 mmol/L (135-145) 12/08/24 03:14
Potassium 4.4 mmol/L (3.5-5.1) 12/08/24 03:14
BUN 19 mg/dl (9-20) 12/08/24 03:14
Creatinine 1.0 mg/dL (0.7-1.3) 12/08/24 03:14
Glucose 105 mg/dl (70-99) H 12/08/24 03:14
Troponins
12/07/24
12:31
Troponin I < 0.012
Vital Signs and I&O:
Vital Signs
Temp Pulse Resp BP Pulse Ox
36.6 C 75 19 129/86 99
12/08/24 03:11 12/08/24 07:06 12/08/24 07:06 12/08/24 07:06 12/08/24 03:19
Vital Signs
Temp Pulse Resp BP Pulse Ox
36.6 C 75 19 129/86 99
12/08/24 03:11 12/08/24 07:06 12/08/24 07:06 12/08/24 07:06 12/08/24 03:19
Intake & Output
12/06/24 12/07/24 12/08/24 12/09/24
07:59 07:59 07:59 07:59
Intake Total 1440 / 1440
Output Total 1900 / 1900
Balance -460 / -460
Physical Exam
Physical Exam
See above
[2024-12-08 08:41] LABS: Glycohemoglobin (HgbA1c) 5.0 % (4.0-5.6)
--- NOTE | 2024-12-08 09:36 | W.PN.NEURO.1 ---
Today's Communication / Plan
-
ECHO, MRI brain, thyroid u/s, CTA torso
Neuro Assessment/Plan
Assessment
Head CT imgs rev'd normal
CTA head/neck imgs rev'd no LVO, no atherosclerosis. multinodule thyroid
CTP core 0, penumbra 0
HDL 37, LDL 166
TSH, ESR, CRP, folate, B12, all normal
homocysteine pending
39 year old man initial presentation of L hemispheric TIA fully resolved, then developed left facial symptoms. stroke in the young. s/p TNK
multiple territories, suspect embolic etiology unknown source (ESUS)
stroke secondary prevention ASA 81 lifelong, Rosuvastatin 20, 21 days of Plavix
Diagnostic tests: MRI brain without contrast, ECHO
CTA torso eval for systemic emboli
multinodular thyroid mass check ultrasound he had bx 15 years ago benign
he plans to wear apple watch for afib screening
outpatient ANNA/cardiology f/u, may be a good idea to see a stroke fellowship trained neurologist
d/w patient, , the above and all ? answered
Subjective/Objective
Subjective Data
Date of Service: December 08, 2024
After TNK, all symptoms resolved.
Objective Data
Vital Signs
Temp Pulse Resp BP Pulse Ox
36.8 C 65 13 130/75 99
12/08/24 08:00 12/08/24 08:00 12/08/24 08:00 12/08/24 08:00 12/08/24 03:19
Lab Results
12/08/24 03:14
12/08/24 03:14
PT 14.4 Sec (11.4-14.6) 12/08/24 03:14
INR 1.09 12/08/24 03:14
APTT 25.7 Sec (23.4-35.0) 12/08/24 03:14
Sodium 140 mmol/L (135-145) 12/08/24 03:14
Potassium 4.4 mmol/L (3.5-5.1) 12/08/24 03:14
BUN 19 mg/dl (9-20) 12/08/24 03:14
Glucose 105 mg/dl (70-99) H 12/08/24 03:14
Calcium 9.3 mg/dl (8.4-10.2) 12/08/24 03:14
Phosphorus 4.2 mg/dl (2.5-4.5) 12/07/24 20:06
LDL Cholesterol, Calc 166 mg/dl 12/08/24 03:14
Vitamin B12 733 pg/ml (239-931) 12/07/24 20:06
Ur Buprenorphine Negative (Negative) 12/07/24 13:05
Patient Allergies
No Known Allergies Allergy (Unverified 01/08/22 08:37)
Physical Exam
-
AAOx3
nonfocal
--- NOTE | 2024-12-08 10:35 | PTCARENOTE ---
completed CTscan, echo now at bedside, will coordinate US.
--- NOTE | 2024-12-08 11:00 | PTCARENOTE ---
Echo Bubble Study completed per protocol with aseptic technique. Left antecubital 18 G PC utilized, flushed easily before and after procedure. Pt tolerated procedure well, denies any dizziness, offers no complaints. No change in status.
--- NOTE | 2024-12-08 13:08 | W.PN.HOSP.TC ---
Today's Communication/Plan
-
Assessment / Plan
Assessment / Plan
General: No Apparent Distress, Comfortable and Conversant
HEENT: NormoCephalic, Moist mucous membranes, Atraumatic
Respiratory: Clear and Non Labored Respirations
Cardiac: S1/S2 and Regular Rhythm; No Rub or Gallop
GI: Soft, Non Tender, Non Distended and Normal Bowel Sounds
Musculoskeletal: No Edema, no deformity
Skin: Warm and dry
: NO Brand
Neuro: Awake, Alert, Nonfocal/grossly intact
Psych: Calm and Intact Judgment/Insight
Mr. Grossman is a 39-year-old male with a medical history of anxiety and depression (started on Wellbutrin 1 month prior to arrival) and thyroid nodules (post left hemithyroidectomy) who presented for evaluation after an episode of headache with
vertigo, photophobia, nausea with vomiting, paresthesias, dysarthria, expressive aphasia, and left-sided facial droop. Initial CT imaging of his brain was normal. His symptoms initially resolved however then returned. He was given TNK with
subsequent resolution of his symptoms. He was admitted to the ICU for further evaluation and management. He reports that his father has a history of a 'hole in his heart'.
Acute CVA:
- Left facial droop and dysarthria resolved
- MRI brain pending
- Will check echo with bubble study
- Thyroid imaging shows multiple right thyroid nodules, TSH low normal, will need ongoing outpatient thyroid monitoring
- Total cholesterol elevated at 227, started rosuvastatin 20 mg nightly
- No arrhythmias on telemetry, will need outpatient cardiology follow-up for ambulatory cardiac monitoring
- PT/OT eval this afternoon outside of 24-hour window following TNK (administered 12:23 12/07)
- Will follow-up with neurology regarding antiplatelet therapy
DVT prophylaxis: SCDs
CODE STATUS: Full code
Total time spent on today's encounter was 55 minutes.
Anticipated Discharge: 24 - 48 hours
Subjective/Interval History
-
Date of Service: December 08, 2024
Patient was seen and examined at bedside this morning. No current neurologic deficits status post TNK at time of admission. Awaiting repeat brain imaging with MRI today. Echocardiogram pending. No arrhythmias noted on telemetry.
Objective Data
-
Labs:
Laboratory Results
12/08/24
03:14
WBC 9.8
Hgb 15.7
Hct 43.5
Plt Count 243
PT 14.4
INR 1.09
APTT 25.7
Sodium 140
Potassium 4.4
Chloride 106
Carbon Dioxide 27
BUN 19
Creatinine 1.0
Glucose 105 H
Calcium 9.3
Vital Signs:
Vital Signs
Temp Pulse Resp BP Pulse Ox
97.6 F 69 13 129/74 99
12/08/24 11:59 12/08/24 10:13 12/08/24 09:00 12/08/24 10:13 12/08/24 03:19
I&O
12/07/24 12/08/24 12/09/24
06:59 06:59 06:59
Intake Total 1440 / 1440
Output Total 1900 / 1900
Balance -460 / -460
Review of Systems
-
History Source: Patient
All other systems: Reviewed and negative
Physical Exam
-
General: No Apparent Distress
--- NOTE | 2024-12-08 13:34 | PTCARENOTE ---
patient tele orders, completed MRI, Echo, CT scan and ultrasound. potential discharge today.
--- NOTE | 2024-12-08 13:36 | CON.MR ---
Documented by User: Lennox Pinon MD, Resident 12/08/24 16:08
Consultation
Consultation Request
Date/Time Consultation Requested: 12/07/24
Date/Time Consultation Performed: 12/08/24
Requesting Provider: Kedar Delong
Performing Provider: Dr. Amador
Reason for Consultation: stroke/TIA
Medical History
-
Chief Complaint: stroke
History of Present Illness:
Mr. Grossman 39-year-old male history of anxiety/depression on Wellbutrin, no other past medical history, presenting with concern for CVA. He woke up 12/07 morning feeling foggy with some memory dysfunction. While he was at work he developed bilateral
headache at around. He felt pain across his entire body bilaterally with tingling in his hands bilaterally and some numbness of the left face. He had dizziness without vertigo. He had nausea and sweating. No vomiting. No visual symptoms or
vision loss. He felt weak in his legs bilaterally and left-sided paresthesias. His noticed that he had some slurred speech. In the ED his symptoms initially resolved and initial CT scan was unremarkable, CTA also unremarkable, but then
developed left facial symptoms including facial droop and recurrent left-sided paresthesias and patient was given TNK 12/07 at 1230pm. In the hospital he was started on rosuvastatin and dual antiplatelet regimen ASA and Plavix, will have cardiac
follow-up to assess for arrhythmia monitoring, inpatient echo pending.
Past Medical History
Past Medical History: Psychiatric (Anxiety/depression, on Wellbutrin started 2 weeks ago)
Family History
Family History: Other (Father with hole in heart)
Social History
Functional Level Premorbidity:
Independent for all activities.
Current Funct Level: Ambulation, Transfer, UE/LE Dressing:
The patient is independent with ambulation and elevations, no strength/coordination deficits noted. PT services are not warranted
Tobacco: Non-Smoker
Alcohol: Occasional
Drug: Marijuana
Personal:
Living: With Spouse
Is 24 hour care available: Yes
Number of Floors: 2
# Steps to Enter: 1
# Steps to Second Floor: 6
Potential First Floor Set Up: Yes
Driving: Yes
Employment: Employed
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
Allergies / Home Medications
Allergy/AdvReac Type Severity Reaction Status Date / Time
No Known Allergies Allergy Unverified 01/08/22 08:37
�Medication �Instructions �Recorded �Confirmed �Last Taken �Type
bupropion HCl 150 mg 24 hr tablet, 150 mg PO DAILY Mental Health 12/07/24 12/07/24 Unknown History
extended release (Wellbutrin XL)
omega 8-cgy-yal-fish oil 60 mg-90 1 cap PO DAILY Supplement 12/07/24 12/07/24 Unknown History
mg-500 mg capsule (Fish Oil)
therapeutic multivitamin 1 tab PO DAILY Supplement 12/07/24 12/07/24 Unknown History
Review Of Systems
-
History Source: Patient and Family
Constitutional: Reports Fatigue; Denies Fever, Weight Loss or Chills
Eye: Reports No Symptoms; Denies Blurry Vision or Visual Field Cut
EENT: Reports No Symptoms; Denies Tearing or Sore Throat
Respiratory: Reports No Symptoms; Denies Cough or Trouble Breathing
Cardiac: Reports No Symptoms; Denies Chest Pain or Palpitations
Abdomen/GI: Reports No Symptoms; Denies Abdominal Pain, Nausea, Vomiting, Diarrhea or Constipated
: Reports No Symptoms; Denies Dysuria
Musculoskeletal: Reports No Symptoms; Denies Joint Pain or Muscle Pain
Integumentary: Reports No Symptoms
Neurological: Reports No Symptoms; Denies Headache, Weakness or Numbness
Psych: Reports No Symptoms
Physical Exam
Active Medications
Generic Name Dose Route Start Last Admin
Trade Name Freq PRN Reason Stop Dose Admin
Acetaminophen 650 mg 12/07/24 13:29
Acetaminophen 325 Mg Tablet PO 01/04/25 13:28
Q4HPRN PRN
MODI, mild pain, or temp >100.4F
Bupropion HCl 150 mg 12/09/24 08:00
Bupropion (24hr) Extended Release 150 Mg Tablet PO 01/06/25 07:59
DAILY ALETHEA
Rosuvastatin Calcium 20 mg 12/08/24 18:00
Rosuvastatin (Crestor) 20 Mg Tablet PO 01/05/25 17:59
QPM ALETHEA
Vital Signs
Temp Pulse Resp BP Pulse Ox
97.6 F 69 13 129/74 99
12/08/24 11:59 12/08/24 10:13 12/08/24 09:00 12/08/24 10:13 12/08/24 03:19
Height 6 ft 1 in
Actual Weight 84 kg
Body Mass Index (BMI) 24.4
Physical Exam
Physical Exam:
General Appearance/Observation: Well-developed, well-nourished individual in no apparent distress.
Pain/Comfort Assessment: Denies
Mood/Affect: Appropriate
Integumentary/Operative Site:
Pressure Ulcer: absent
Other Type of Wound: absent
Eyes: Conjunctiva/Lids: normal Pupils: pupils equal round and reactive to light and Accommodation
Ears/Nose/Throat: oral mucosa moist, throat clear. Lips/Teeth/Gums: normal
Neck: No muscle spasm or tenderness
Cardiovascular: Heart: regular, no murmur
Pulses: dorsalis pedis 2+ bilaterally
Respiratory: Respiratory Effort/Chest Expansion: normal Auscultation: Clear to auscultation bilaterally
Gastrointestinal: abdomen not tender, no distension, normal abdominal bowel sounds
Genitourinary: No Brand
Rectal Exam: Deferred
Extremities: Edema: None Cyanosis: None Trophic changes: None
Neurology Exam:
Orientation: Alert, Oriented to self, Time, Place
Memory: Intact immediately and at 3 minutes
Higher cortical function
Speech: Intact
Repetition: Intact
Comprehension: Intact
Two step command: Intact
Naming: Intact
Cranial Nerves:
CNII: Pupillary light reflex: Intact Visual Field: Intact
CN III, IV, : Extraocular muscles: Intact
CN V: Facial Sensation at Forehead: Intact , Maxilla: Intact, Mandible: Intact
CN VII: Facial movement: Symmetric
CN VIII: Hearing: Normal
CN IX/X: Speech & swallow: Normal, Position of Uvula: Midline
CN XI: Shoulder shrug: Symmetric
CN XII: Tongue protrusion: Midline
Sensory:
Light touch: Intact in bilateral upper and lower extremities
Pinprick: Delete intact bilaterally upper and lower extremities
Proprioception: Intact
Temperature:Deferred
Reflexes:
Biceps: 2+ bilaterally
Brachioradialis: 2+ bilaterally
Triceps: 2+ bilaterally
Patellar: 2+ bilaterally
Achilles: 2+ bilaterally
Babinski: Downgoing bilaterally
Clonus: None
Jacoby: Negative bilaterally
Cerebellar: Dysmetria/Ataxia: None
Musculoskeletal:
Motor: (Manual muscle scale 0-5)
Muscle SA EF WE EE FF FA HF KE DF EHL PF
Right 5 5 5 5 5 5 5 5 5 5 5
Left 5 5 5 5 5 5 5 5 5 5 5
Tone: Normal in all extremities
Range of Motion: Passively within normal limits in all extremities
Lab Results
12/08/24 03:14
12/08/24 03:14
WBC 9.8 10^3/uL (4.8-10.8) 12/08/24 03:14
Hgb 15.7 g/dL (13.0-18.0) 12/08/24 03:14
Hct 43.5 % (39.0-52.0) 12/08/24 03:14
MCV 85.1 fL (80.0-94.0) 12/08/24 03:14
Plt Count 243 10^3/uL (130-400) 12/08/24 03:14
ESR 1 mm/hour (0-20) 12/07/24 12:29
PT 14.4 Sec (11.4-14.6) 12/08/24 03:14
INR 1.09 12/08/24 03:14
Sodium 140 mmol/L (135-145) 12/08/24 03:14
Potassium 4.4 mmol/L (3.5-5.1) 12/08/24 03:14
Chloride 106 mmol/L (98-107) 12/08/24 03:14
Carbon Dioxide 27 mmol/L (22-30) 12/08/24 03:14
BUN 19 mg/dl (9-20) 12/08/24 03:14
Creatinine 1.0 mg/dL (0.7-1.3) 12/08/24 03:14
eGFR > 60.00 12/08/24 03:14
Glucose 105 mg/dl (70-99) H 12/08/24 03:14
Hemoglobin A1c Cancelled 12/07/24 13:29
Calcium 9.3 mg/dl (8.4-10.2) 12/08/24 03:14
Phosphorus 4.2 mg/dl (2.5-4.5) 12/07/24 20:06
Magnesium 2.2 mg/dl (1.6-2.3) 12/07/24 20:06
Total Bilirubin 1.1 mg/dl (0.2-1.3) 12/07/24 12:29
AST 35 U/L (17-59) 12/07/24 12:29
ALT 34 U/L (0-50) 12/07/24 12:29
Alkaline Phosphatase 48 U/L (38-126) 12/07/24 12:29
C-Reactive Protein < 5.00 mg/L (0.0-10.00) 12/07/24 20:06
Total Protein 7.6 g/dl (6.3-8.2) 12/07/24 12:29
Albumin 5.1 g/dl (3.5-5.0) H 12/07/24 12:29
Diagnostic Results
As per HPI.
Comorbidities / Impairment Group
Comorbidities:
Impairment Group:
Assessment / Plan
Plan
PM&R PT/OT to increase independence with ADLs, improve balance, coordination, endurance, strength, mobility, community reintegration, decreased burden of care on others and family education.
CVA: Secondary prophylaxis with aspirin, statin, and blood pressure control (SBP less than 180 and diastolic less than 100 to participate with therapy for ischemic stroke). Continue to monitor neurologic status.
HLD: Statin
Arrhythmia: Unknown history, no arrhythmia detected while in the hospital, outpatient follow-up with cardiology
Psych: Monitor mood, adjust medications as needed.
Skin: monitor for pressure sores/rashes/lesions.
Pain: acetaminophen or oxycodone as needed.
Bowel: As needed Colace and Senna, PRN bisacodyl.
DVT Prophylaxis: SCDs
Safety: Continue to reinforce assistance with all transfers.
Code Status: Full code
Dispo: Home with family care. Social history reviewed.
Summary
-
Things that must be addressed in Hospital prior to discharge:
Patient must be stable on oral pain medications.
Blood pressure must be less than 180 systolic and 100 diastolic for 24 hours before being stable for transfer to SNF/acute rehab.
Please give blood pressure parameters..
Discharge Destination: Home
Summary of recommendations:
- Discharge Destination: Home
Will sign off, please re-consult if needed.
Thank you for allowing me to care for your patient. Please contact me with any questions or concerns.
Comments
-
This note was dictated using a voice recognition system. Please excuse any typographical errors from access control specialist. If you believe there are any discrepancies, please notify our office.

Documented by User: Oren Amador MD 12/08/24 23:37
Physical Exam
Physical Exam
Physical Exam:
General Appearance/Observation: Well-developed, well-nourished male in no apparent distress.
Pain/Comfort Assessment: Denies
Mood/Affect: Appropriate
Integumentary/Operative Site: No lesions noted during course of exam
Eyes: Conjunctiva/Lids: normal Pupils: pupils equal round and reactive to light and Accommodation
Ears/Nose/Throat: oral mucosa moist, throat clear. Lips/Teeth/Gums: normal
Neck: No muscle spasm or tenderness
Cardiovascular: Heart: regular, no murmur
Pulses: dorsalis pedis 2+ bilaterally
Respiratory: Respiratory Effort/Chest Expansion: normal Auscultation: Clear to auscultation bilaterally
Gastrointestinal: abdomen not tender, no distension, normal abdominal bowel sounds
Genitourinary: No Brand
Rectal Exam: Deferred
Extremities: Edema: None Cyanosis: None Trophic changes: None
Neurology Exam:
Orientation: Alert, Oriented to self, Time, Place
Memory: Intact for recent medical concerns
Speech: Intact
Repetition: Intact
Comprehension: Intact
Two step command: Intact
Naming: Intact
Cranial Nerves:
CNII: Pupillary light reflex: Intact Visual Field: Intact
CN III, IV, : Extraocular muscles: Intact
CN V: Facial Sensation at Forehead: Intact , Maxilla: Intact, Mandible: Intact
CN VII: Facial movement: Symmetric
CN VIII: Hearing: Normal
CN IX/X: Speech & swallow: Normal, Position of Uvula: Midline
CN XI: Shoulder shrug: Symmetric
CN XII: Tongue protrusion: Midline
Sensory:
Light touch: Intact in bilateral upper and lower extremities
Pinprick: Delete intact bilaterally upper and lower extremities
Proprioception: Intact
Temperature:Deferred
Reflexes:
Biceps: 2+ bilaterally
Brachioradialis: 2+ bilaterally
Triceps: 2+ bilaterally
Patellar: 2+ bilaterally
Achilles: 2+ bilaterally
Babinski: Downgoing bilaterally
Clonus: None
Jacoby: Negative bilaterally
Cerebellar: Dysmetria/Ataxia: None
Musculoskeletal: Motor: (Manual muscle scale 0-5)
Muscle SA EF WE EE FF FA HF KE DF EHL PF
Right 5 5 5 5 5 5 5 5 5 5 5
Left 5 5 5 5 5 5 5 5 5 5 5
Tone: Normal in all extremities
Range of Motion: Passively within normal limits in all extremities
Assessment / Plan
Assessment
39-year-old male history of anxiety/depression with 12/07 left facial symptoms including facial droop and recurrent left-sided paresthesias S/P TNK with resolution of symptoms.
Plan
PM&R PT/OT to increase independence with ADLs, improve balance, coordination, endurance, strength, mobility, community reintegration, decreased burden of care on others and family education.
CVA: Secondary prophylaxis with aspirin, statin, and blood pressure control (SBP less than 180 and diastolic less than 100 to participate with therapy for ischemic stroke). Continue to monitor neurologic status.
-Reviewed stroke risk and what to do for new symptoms, need to follow-up with PCP and neuro for further management/evaluation.
Psych: Mood doing fine
Pain: acetaminophen as needed.
Bowel: As needed medications
DVT Prophylaxis: SCDs
Safety: Continue to reinforce assistance with all transfers.
Code Status: Full code
Dispo: Home with family care. Social history reviewed.
Attending Statement: I performed a history and examined the patient today.� I reviewed the care plan with therapy, nursing, and the resident.� I agree with the history and ROS above as modified.� The physical exam and plan documented reflects my
examination and plan.��A total of 50 minutes were spent with the patient preparing for the evaluation, obtaining history, performing examination and evaluation, counseling, data review, case management, care coordination, box order person, and EMR
documentation.�������
� � � � �
--- NOTE | 2024-12-08 14:15 | PTOTSP ---
The patient is independent with ambulation and elevations, no strength/coordination deficits noted. PT services are not warranted, will sign off.
--- NOTE | 2024-12-08 16:01 | W.DCSUMMARY ---
Discharge Summary
Discharge Data
Date of Admission: 12/07/24
Date of Discharge: 12/08/24
Total time spent discharging patient (in min): 51
-
Pending Results: No
Hospital Course
Mr. Grossman is a 39-year-old male with a medical history of anxiety and depression (started on Wellbutrin 1 month prior to arrival) and thyroid nodules (post left hemithyroidectomy) who presented for evaluation after an episode of headache with
vertigo, photophobia, nausea with vomiting, paresthesias, dysarthria, expressive aphasia, and left-sided facial droop. Initial CT imaging of his brain was normal. His symptoms initially resolved however then returned. He was given TNK with
subsequent resolution of his symptoms. He was admitted to the ICU for further evaluation and management. Of note, patient reports that his father has a history of a 'hole in his heart'.
MRI brain shows no acute abnormalities. Echocardiogram with bubble study shows normal structure and function with no evidence of [id number] shunting. No arrhythmias noted on telemetry. Patient was provided with an ambulatory lunchroom monitor
and will need to follow-up with cardiology in the outpatient setting for further evaluation. He will be started on dual antiplatelet therapy with aspirin and Plavix to continue for 21 days, following which he will be continued on aspirin 81 mg
daily indefinitely. His total cholesterol level was elevated at 227. He was started on statin therapy with rosuvastatin 20 mg nightly, which he should continue indefinitely. He should have a lipid panel checked periodically by his primary care
provider. Thyroid imaging showed multiple right thyroid nodules. His TSH was within the low normal range. He will need ongoing outpatient thyroid monitoring. He has no skilled needs regarding physical or occupational therapy. At time of
hospital discharge he was medically stable with no residual neurologic deficits. He will need to follow-up closely with his primary care provider.
General: No Apparent Distress, Comfortable and Conversant
HEENT: NormoCephalic, Moist mucous membranes, Atraumatic
Respiratory: Clear and Non Labored Respirations
Cardiac: S1/S2 and Regular Rhythm; No Rub or Gallop
GI: Soft, Non Tender, Non Distended and Normal Bowel Sounds
Musculoskeletal: No Edema, no deformity
Skin: Warm and dry
: NO Brand
Neuro: Awake, Alert, Nonfocal/grossly intact
Psych: Calm and Intact Judgment/Insight
Discharge Plan
-
Patient Disposition: Home (Routine Discharge)
Discharge Diagnosis/Procedures: CVA
Activity Restrictions/Additional Instructions:
Mr. Grossman is a 39-year-old male with a medical history of anxiety and depression (started on Wellbutrin 1 month prior to arrival) and thyroid nodules (post left hemithyroidectomy) who presented for evaluation after an episode of headache with
vertigo, photophobia, nausea with vomiting, paresthesias, dysarthria, expressive aphasia, and left-sided facial droop. Initial CT imaging of his brain was normal. His symptoms initially resolved however then returned. He was given TNK with
subsequent resolution of his symptoms. He was admitted to the ICU for further evaluation and management. Of note, patient reports that his father has a history of a 'hole in his heart'.
MRI brain shows no acute abnormalities. Echocardiogram with bubble study shows normal structure and function with no evidence of [id number] shunting. No arrhythmias noted on telemetry. Patient was provided with an ambulatory lunchroom monitor
and will need to follow-up with cardiology in the outpatient setting for further evaluation. He will be started on dual antiplatelet therapy with aspirin and Plavix to continue for 21 days, following which he will be continued on aspirin 81 mg
daily indefinitely. His total cholesterol level was elevated at 227. He was started on statin therapy with rosuvastatin 20 mg nightly, which he should continue indefinitely. He should have a lipid panel checked periodically by his primary care
provider. Thyroid imaging showed multiple right thyroid nodules. His TSH was within the low normal range. He will need ongoing outpatient thyroid monitoring. He has no skilled needs regarding physical or occupational therapy. At time of
hospital discharge he was medically stable with no residual neurologic deficits. He will need to follow-up closely with his primary care provider.
Stand Alone Forms: Return to Work
Referrals:
Oren Maya MD [Active, Cardiology]
UNKNOWN - PT NOT,INTERVIEWE [Family Provider]
Prescriptions:
New
rosuvastatin 20 mg Tablet
20 mg PO QPM 90 Days Qty: 90 0RF
clopidogrel [Plavix] 75 mg tablet
75 mg PO DAILY Qty: 21 0RF
aspirin 81 mg tablet
81 mg PO DAILY Qty: 90 0RF
Continued
therapeutic multivitamin Tablet
1 tab PO DAILY
bupropion HCl [Wellbutrin XL] 150 mg Tablet Extended Release 24 Hr
150 mg PO DAILY
omega 8-tat-dvd-fish oil [Fish Oil] 60-90-500 mg Capsule
1 cap PO DAILY
Discharge Orders:
Discharge Patient (As Directed); Ordered 12/08/24
Ordered By: Stevie Pulliam
Discharge Date and Time
Print Language: YI
--- NOTE | 2024-12-08 16:17 | CM ---
CM reviewed chart, patient seen bedside with , initial assessment completed. Patient resides with and 11 year old son in a multiple level home with basement. Patient is independent with ambulation/ADLS, no VN/SNF hx. Patient does not have a
current PCP, in process of finding new PCP for patient and herself, previous PCP was Shaw Sánchez, no longer in practice. Pharmacy [facility]. Per therapy, no skilled need. Patient will have transportation home. CM obtained updated insurance
card, faxed to [facility] - [phone]. CM will continue to follow for all discharge planning needs.
Plan; home no needs
--- NOTE | 2024-12-09 09:37 | CM ---
Discharged to home on 12/08/24 with no additional skilled services. Patient arranged for transport home.
== END 2024-12-08 17:35 | disposition home or self-care (01) | DRG 62 ==
LOC: ICU 13:26
PROVIDERS: ADMITTING PHYSICIAN Hospitalist; ATTENDING PHYSICIAN Internal Medicine; CONSULT PHYSICIAN Internal Medicine; CONSULT PHYSICIAN Internal Medicine Cardiovascular Disease; CONSULT PHYSICIAN Physical Medicine & Rehabilitation; CONSULT PHYSICIAN Psychiatry & Neurology Clinical Neurophysiology; EMERGENCY PHYSICIAN Emergency Medicine
PROC: 3E03317 Introduction of Other Thrombolytic into Peripheral Vein, Percutaneous Approach (ICD-10-PCS; 2024-12-07)
DX: I63.40 Cerebral infarction due to embolism of unspecified cerebral artery (principal); G81.94 Hemiplegia, unspecified affecting left nondominant side; F41.9 Anxiety disorder, unspecified; F32.A Depression, unspecified; R27.0 Ataxia, unspecified; R47.01 Aphasia; E04.2 Nontoxic multinodular goiter; R29.810 Facial weakness; E78.00 Pure hypercholesterolemia, unspecified; Z82.49 Family history of ischemic heart disease and other diseases of the circulatory system
CPT/HCPCS: 0042T; 70450; 70496; 70498; 70551; 71045; 71275; 74174; 76536; 80048; 80053; 80061; 80306; 82077; 82607; 82728; 82746; 82962; 83036; 83090; 83735; 84100; 84443; 84484; 85025; 85027; 85610; 85652; 85730; 86140; 92523; 93005; 93306; 97162; 97166; 99291; J3101; Q9967